=== PATIENT | female | born 1985 | race Caucasian/White ===

== ENCOUNTER → 2019-08-19 | Day surgery (SDC) | payer OTHER ==
[~2019-08-19] MED LIST: FENTANYL CITRATE/PF 100MCG/2 ML INJ ONE; HYOSCYAMINE 0.125 MG TAB ONE; METFORMIN HCL500 MG PO; MIDAZOLAM HCL 2 MG/2 ML VIAL ONE; PROPOFOL IV EMULSION 10 MG/ML 50 ML VIAL ONE
--- OUTSIDE RECORDS SUMMARY | 2019-08-19 08:27 | XMS REPORT ---
Author Author [facility] Address Unknown Phone Unavailable Care Team Providers Care Manager Testing Name Role Phone Unavailable Unavailable Problems This patient has no known problems. Allergies, Adverse Reactions, Alerts This patient has no known allergies or adverse reactions. Medications This patient has no known medications.
[2019-08-19 11:35] VITALS: BP 114/79
[2019-08-19 12:36] LABS: WBC,FECAL (FECAL LACTOFERRIN) NEGATIVE (NEGATIVE)
[2019-08-19 13:24] LABS: C DIFFICILE TOXIN A&B AMP PROB NEGATIVE (NEGATIVE)
--- NOTE | 2019-08-19 13:25 | Operative Report ---
DATE OF PROCEDURE: 08/19/2019 SURGEON: Pedro Guevara MD PROCEDURES: Colonoscopy with polypectomy and biopsies. INDICATIONS FOR COLONOSCOPY: Chronic diarrhea, unintentional weight loss. MEDICATIONS: The patient was done under MAC, please see anesthesiologist's note. PROCEDURE IN DETAIL: With the patient in left lateral decubitus position, a flexible fiberoptic Olympus colonoscope was inserted into the rectum with ease and advanced all the way to the cecum. The ileocecal valve was intubated. The scope was advanced into the terminal ileum. Biopsies were obtained. The scope was then withdrawn back into the colon. It was then withdrawn slowly. Mucosa overlying the cecum, ascending, and transverse grossly appeared to be within normal limits. There was some patchy mild inflammatory changes in the left colon as well as in the rectum, and random biopsies were obtained. Also some random biopsies were obtained from the transverse. Approximately 8 mm sessile polyp was snared from the sigmoid colon. The scope was then retroflexed into the distal rectum and small internal hemorrhoids were noted, none of which was actively bleeding. The scope was then straightened out and it was subsequently withdrawn after securing an adequate stool specimen that was sent for the appropriate stool studies. The patient tolerated the procedure well. IMPRESSION: 1. Colitis, mild, primarily left-sided, random biopsies obtained. 2. Sigmoid colon polyp snared. 3. Proctitis, biopsied. 4. Internal hemorrhoids, none actively bleeding. PLAN: Follow up histology. Follow up stool studies. Initiate Bentyl 10 mg 1 p.o. t.i.d. The patient might benefit from a followup colonoscopy in 3 to 5 years. Pedro Guevara MD [facility] [place]/HARINI /[id number] cc: Ananda Garcia DO
== END | disposition home or self-care (01) ==
LOC: OR 08:24
PROVIDERS: ATTEND Internal Medicine Gastroenterology
DX: R19.4 Change in bowel habit (principal); R19.7 Diarrhea, unspecified; R14.0 Abdominal distension (gaseous); R63.4 Abnormal weight loss; E11.9 Type 2 diabetes mellitus without complications; K51.50 Left sided colitis without complications; K63.5 Polyp of colon; K62.89 Other specified diseases of anus and rectum; K64.8 Other hemorrhoids; R10.84 Generalized abdominal pain; K59.00 Constipation, unspecified; Z68.39 Body mass index [BMI] 39.0-39.9, adult; Z01.812 Encounter for preprocedural laboratory examination; Z79.84 Long term (current) use of oral hypoglycemic drugs
CPT/HCPCS: 36415; 45378; 45380; 45385; 81025; 82948; 83630; 83993; 87045; 87177; 87328; 87493; J2250; J3010